=== PATIENT | male | born 1990 | race Caucasian/White ===

== ENCOUNTER 2019-08-10 10:11 | Observation (INO) ==
[2019-08-10 11:13] LABS: Basophils # 0.1 K/mcL (0.0-0.2); Basophils % 0.4 %; Eosinophils # 0.3 K/mcL (0.0-0.6); Eosinophils % 2.2 %; Hematocrit 31.4 % (37.5-50.1); Hemoglobin 9.2 g/dL (12.9-16.9); Immature Granulocytes % 0.8 % (0-4); Lymphocytes # 6.4 K/mcL (0.6-4.6); Lymphocytes % 53.9 %; Mean Corpuscular HGB Conc 29.3 g/dL (31.6-35.5); Mean Corpuscular Hemoglobin 25.3 pg (28.0-33.3); Mean Corpuscular Volume 86.5 fL (83.0-100.0); Mean Platelet Volume 7.8 fL (9.4-12.4); Monocytes # 0.5 K/mcL (0.0-1.3); Monocytes % 4.6 %; Neutrophils # 4.5 K/mcL (1.6-8.9); Platelet Count 610 K/mcL (140-400); Red Blood Count 3.63 M/mcL (4.19-5.50); Red Cell Distribution Width 16.3 % (11.5-14.5); Segmented Neutrophils % 38.1 %; White Blood Count 11.8 K/mcL (4.3-11.1)
[2019-08-10 11:36] LABS: Acetaminophen < 10 mcg/mL (10-20); BUN/Creatinine Ratio 13 (6-26); Blood Urea Nitrogen 8 mg/dL (6-20); Carbon Dioxide 26 mEq/L (23-29); Chloride 111 mEq/L (98-107); Ethanol 461 mg/dL (Less than 10); Glucose 116 mg/dL (70-105); Osmolality,Calculated 301 (280-300); Potassium 3.7 mEq/L (3.5-5.1); Salicylate < 2.5 mg/dL (15.0-30.0); Sodium 146 mEq/L (136-145); eGFR For African Americans > 60 (> 60); eGFR For Non-African Americans > 60 (> 60)
[2019-08-10] MEDS ORDERED: 0.9 % Sodium Chloride 1,000 ML IVC ONE (12:00)
[2019-08-10 15:48] LABS: Bilirubin,Urine Negative (Negative); Blood,Urine Negative (Negative); Clarity,Urine Clear (Clear); Color,Urine Colorless (Yellow); Glucose,Urine (UA) Normal (Normal); Ketones,Urine Negative (Negative); Leukocyte Esterase,Urine Negative (Negative); Nitrite,Urine Negative (Negative); Protein,Urine Negative (Neg-Trace); Specific Gravity,Urine 1.013 (1.010-1.025); Urobilinogen,Urine Normal (Normal)
[2019-08-10 15:49] LABS: Amphetamine Screen,Urine Negative ng/mL (Cutoff=1000); Barbiturate Screen,Urine Negative ng/mL (Cutoff=200); Benzodiazepines Screen,Urine Negative ng/mL (Cutoff=200); Cannabinoid Screen,Urine Negative ng/mL (Cutoff = 50); Cocaine Screen,Urine Negative ng/mL (Cutoff= 300); Opiate Screen,Urine Negative ng/mL (Cutoff=300); Phencyclidine Screen,Urine Negative ng/mL (Cutoff=25)
[2019-08-11] MEDS ORDERED: Naloxone 0.4 MG/ML INJ IVP PRN (04:10)
[2019-08-11] MEDS: 0.9 % Sodium Chloride 1,000 ML IVC SCH ×2 (04:53→22:54)
[2019-08-11] MEDS ORDERED: *HR* Promethazine 25 MG/ML VIAL IVP PRN (06:00)
[2019-08-11 06:48] LABS: Hematocrit 24.8 % (37.5-50.1); Hemoglobin 7.2 g/dL (12.9-16.9); Mean Corpuscular Hemoglobin 24.9 pg (28.0-33.3); Mean Corpuscular Volume 85.8 fL (83.0-100.0); Platelet Count 422 K/mcL (140-400); Red Blood Count 2.89 M/mcL (4.19-5.50); Red Cell Distribution Width 16.1 % (11.5-14.5)
[2019-08-11 06:59] LABS: % Iron Saturation 13 % (20-55); Alanine Aminotransferase 20 Units/L (7-52); Albumin 2.5 g/dL (3.5-5.7); Albumin/Globulin Ratio 0.9 (1.1-2.2); Alkaline Phosphatase 85 Units/L (34-104); Aspartate Amino Transferase 28 Units/L (13-39); BUN/Creatinine Ratio 10 (6-26); Bilirubin,Total 0.6 mg/dL (0.3-1.0); Blood Urea Nitrogen 6 mg/dL (6-20); Calcium 8.4 mg/dL (8.6-10.3); Carbon Dioxide 23 mEq/L (23-29); Chloride 104 mEq/L (98-107); Globulin 2.8 g/dL (2.4-3.5); Glucose 95 mg/dL (70-105); Iron 42 mcg/dL (65-175); Magnesium 1.5 mg/dL (1.6-2.6); Osmolality,Calculated 279 (280-300); Phosphorous 4.9 mg/dL (2.7-4.5); Potassium 3.7 mEq/L (3.5-5.1); Sodium 136 mEq/L (136-145); Total Protein 5.3 g/dL (6.4-8.9); Transferrin 225 mg/dL (203-362); eGFR For African Americans > 60 (> 60); eGFR For Non-African Americans > 60 (> 60)
[2019-08-11 07:12] LABS: Thyroid Stimulating Hormone 1.796 mcIU/mL (0.340-5.600)
[2019-08-11 07:22] LABS: Folate 4.2 ng/mL (3.0-16.0)
[2019-08-11 07:23] LABS: Ferritin < 8 ng/mL (20-250)
[2019-08-11] MEDS ORDERED: Magnesium Sulfate 1 GM/102 ML PIGGYBACK IVPB ONE (08:49)
[2019-08-11] MEDS ORDERED: *HR* LORazepam 2 MG/ML VIAL IVP PRN ×3 (08:52)
[2019-08-11] MEDS ORDERED: MVI, adult with vitamin K 10 ML in 0.9 % Sodium Chloride 1,000 ML IVC ONE (08:52)
[2019-08-11] MEDS ORDERED: [UNRECOGNIZED DRUG - OTHER] PO SCH (09:00)
[2019-08-11] MEDS ORDERED: IRON PS CPLX PO SCH (09:00)
[2019-08-11] MEDS ORDERED: FERROUS FUMARATE PO SCH (09:00)
[2019-08-11 09:23] LABS: Hematocrit 23.4 % (37.5-50.1); Hemoglobin 6.8 g/dL (12.9-16.9)
[2019-08-11] MEDS: Lactobacillus 1 EACH CAP.SPRINK PO SCH (10:01)
[2019-08-11] MEDS ORDERED: Iron Sucrose Complex 400 MG in 0.9 % Sodium Chloride 250 ML IVPB ONE (10:28)
[2019-08-11] MEDS ORDERED: 0.9 % Sodium Chloride 250 ML ONE (12:44)
[2019-08-11] MEDS: FLUoxetine HCl Oral Soln 20 MG/5 ML UDC PO SCH (12:51)
[2019-08-11 17:41] LABS: Hematocrit 24.7 % (37.5-50.1); Hemoglobin 7.4 g/dL (12.9-16.9)
[2019-08-11 23:01] LABS: Hematocrit 25.2 % (37.5-50.1); Hemoglobin 7.6 g/dL (12.9-16.9)
[2019-08-12 06:19] LABS: Basophils % 0.5 %; Eosinophils # 0.2 K/mcL (0.0-0.6); Eosinophils % 3.8 %; Hematocrit 23.7 % (37.5-50.1); Hemoglobin 7.2 g/dL (12.9-16.9); Immature Granulocytes % 0.2 % (0-4); Lymphocytes # 2.1 K/mcL (0.6-4.6); Mean Corpuscular HGB Conc 30.4 g/dL (31.6-35.5); Mean Corpuscular Hemoglobin 25.4 pg (28.0-33.3); Mean Corpuscular Volume 83.7 fL (83.0-100.0); Mean Platelet Volume 8.8 fL (9.4-12.4); Monocytes # 0.6 K/mcL (0.0-1.3); Monocytes % 9.1 %; Neutrophils # 3.1 K/mcL (1.6-8.9); Platelet Count 303 K/mcL (140-400); Red Blood Count 2.83 M/mcL (4.19-5.50); Red Cell Distribution Width 15.5 % (11.5-14.5); Segmented Neutrophils % 51.4 %
[2019-08-12 06:37] LABS: BUN/Creatinine Ratio 7 (6-26); Blood Urea Nitrogen 4 mg/dL (6-20); Carbon Dioxide 24 mEq/L (23-29); Chloride 107 mEq/L (98-107); Glucose 84 mg/dL (70-105); Osmolality,Calculated 278 (280-300); Potassium 3.6 mEq/L (3.5-5.1); Sodium 136 mEq/L (136-145); eGFR For African Americans > 60 (> 60); eGFR For Non-African Americans > 60 (> 60)
[2019-08-12] MEDS: Lactobacillus 1 EACH CAP.SPRINK PO SCH (09:04)
[2019-08-12] MEDS: FLUoxetine HCl Oral Soln 20 MG/5 ML UDC PO SCH (09:05)
[2019-08-12 14:46] LABS: Hematocrit 25.1 % (37.5-50.1); Hemoglobin 7.5 g/dL (12.9-16.9)
[2019-08-13 02:14] LABS: Hematocrit 24.6 % (37.5-50.1); Hemoglobin 7.5 g/dL (12.9-16.9); Mean Corpuscular HGB Conc 30.5 g/dL (31.6-35.5); Mean Corpuscular Hemoglobin 25.5 pg (28.0-33.3); Mean Corpuscular Volume 83.7 fL (83.0-100.0); Mean Platelet Volume 8.5 fL (9.4-12.4); Platelet Count 369 K/mcL (140-400); Red Blood Count 2.94 M/mcL (4.19-5.50); Red Cell Distribution Width 15.9 % (11.5-14.5); White Blood Count 8.3 K/mcL (4.3-11.1)
[2019-08-13 02:30] LABS: BUN/Creatinine Ratio 5 (6-26); Blood Urea Nitrogen 3 mg/dL (6-20); Calcium 8.1 mg/dL (8.6-10.3); Carbon Dioxide 23 mEq/L (23-29); Chloride 105 mEq/L (98-107); Glucose 89 mg/dL (70-105); Osmolality,Calculated 278 (280-300); Potassium 3.3 mEq/L (3.5-5.1); Sodium 136 mEq/L (136-145); eGFR For African Americans > 60 (> 60); eGFR For Non-African Americans > 60 (> 60)
[2019-08-13] MEDS: FLUoxetine HCl Oral Soln 20 MG/5 ML UDC PO SCH (08:16)
[2019-08-13] MEDS: Lactobacillus 1 EACH CAP.SPRINK PO SCH (08:16)
[2019-08-13] MEDS ORDERED: Iron Sucrose Complex 250 MG in 0.9 % Sodium Chloride 250 ML IVPB SCH (09:00)
[2019-08-13 12:39] VITALS: BP 133/88
== END 2019-08-13 13:52 ==
LOC: EMEROOARM 10:11 → 3BNU 10:11 → SUATTDRO 08-11 04:14 → 3BNU 08-11 04:34
PROVIDERS: ADMIT Student in an Organized Health Care Education/Training Program; ATTEND Family Medicine

== ENCOUNTER 2019-08-13 13:30 | Observation (INO) ==
[2019-08-13] MEDS ORDERED: Mag Hydrox/Al Hydrox/Simeth 30 ML UDC PO PRN (13:35)
[2019-08-13] MEDS ORDERED: haloperidoL 5 MG TABLET PO PRN (13:35)
[2019-08-13] MEDS ORDERED: Haloperidol Lactate 5 MG/ML VIAL IM PRN (13:35)
[2019-08-13] MEDS ORDERED: Acetaminophen 325 MG TABLET PO PRN (13:35)
[2019-08-13] MEDS ORDERED: *HR* LORazepam 2 MG/ML VIAL IM PRN (13:35)
[2019-08-13] MEDS ORDERED: hydrOXYzine pamoate 25 MG CAPSULE PO PRN (13:35)
[2019-08-13] MEDS ORDERED: traZODone 50 MG TABLET PO PRN (13:35)
[2019-08-13] MEDS ORDERED: *HR* LORazepam 1 MG TABLET PO PRN (13:35)
[2019-08-13] MEDS ORDERED: MOM Conc 10 ML UD.LIQ PO PRN (13:35)
[2019-08-14] MEDS ORDERED: Lactobacillus 1 EACH CAP.SPRINK PO SCH (09:00)
[2019-08-14] MEDS ORDERED: FLUoxetine HCl Oral Soln 20 MG/5 ML UDC PO SCH (09:00)
[2019-08-14 09:50] VITALS: BP 123/73
[2019-08-14] MEDS ORDERED: FLUoxetine 20 MG CAPSULE PO SCH (11:30)
== END 2019-08-14 14:10 | disposition home or self-care (01) ==
LOC: 1ANU 13:30 → INTOOBSV 13:30
PROVIDERS: ADMIT Psychiatry & Neurology Psychiatry; ATTEND Psychiatry & Neurology Psychiatry